=== PATIENT | female | born 1985 | race Caucasian/White ===

== ENCOUNTER 2024-02-21 20:01 | Outpatient (REF) | payer OTHER, SELFPAY ==
[2024-02-27 07:10] LABS: Age Gdln ACOG Testing Note (.); HPV Aptima Negative (Negative); IGP, Aptima HPV, rfx 16/18,45 Note (.)
== END 2024-02-21 20:02 | disposition home or self-care (01) ==
LOC: LAB 20:01
PROVIDERS: Visit Provider Obstetrics & Gynecology
DX: Z01.419 Encounter for gynecological examination (general) (routine) without abnormal findings (principal)
CPT/HCPCS: 87624; 88175

== ENCOUNTER 2025-04-07 11:44 | Outpatient (OUT) | payer BC, SELFPAY ==
--- OUTSIDE RECORDS SUMMARY | 2025-04-07 11:45 | XMS_ITS | Patient Health Record ---
Author Organization [facility] [place] Address [address] [place] [address] Care Team Providers Care Appliance Adjuster Name Role Phone Wild Murguia Primary Care Provider Reason For Referral No Information Plan Of Treatment No Information Medications Administered Medication Instructions Date of Administration Dosage Notes Kenalog-40 mg
--- OUTSIDE RECORDS SUMMARY | 2025-04-07 11:45 | XMS_ITS | Encounter Summary ---
Author Organization [facility] Address [address] [place] [address] Care Team Providers Care Ship Engines Operating Engineer Name Role Phone Venkatesh Murguia MD Primary Care Provider [phone] Encounter Details DateTypeDepartmentCare Team (Latest Contact Info)Dicnhgyhxfj02/22/2025Orders Only [facility] [address] [id number] Ludwig Conner, [address] [place], [place] [id number] Encounter for screening mammogram for breast cancer Social History Tobacco UseTypesPacks/DayYears UsedDateSmoking Tobacco: NeverSmokeless Tobacco: NeverAlcohol UseStandard Drinks/WeekCommentsNever0 (1 standard drink = 0.6 oz pure alcohol)CommentsUnknownSex and Gender InformationValueDate Recorded Sex Assigned at WvhdtNskiop80/22/2023 8:37 AM EDTLegal XaeOwrwti21/15/2023 11:46 PM EDTGender GltqjuxcEkkrrr32/22/2023 8:37 AM EDTSexual OrientationStraight 10/24/2022 8:37 AM EDTdocumented as of this encounter Plan of Treatment NameTypePriorityAssociated DiagnosesOrder ScheduleBilateral screening mammogram ImagingRoutine Encounter for screening mammogram for breast cancer Expected: 03/26/2025 (Approximate), Expires: 05/26/2026documented as of this encounter Visit Diagnoses Diagnosis Encounter for screening mammogram for breast cancer documented in this encounter Care Teams Team MemberRelationshipSpecialtyStart DateEnd Date Venkatesh Murguia MD [address] [place] [address] PCP - GeneralFamily Medicine10/25/22documented as of this encounter
--- OUTSIDE RECORDS SUMMARY | 2025-04-07 11:45 | XMS_ITS | Encounter Summary ---
Author Organization [facility] Address [address] [place] [address] Care Team Providers Care Nurse Emergency Room Name Role Phone Venkatesh Murguia MD Primary Care Provider [phone] Encounter Details DateTypeDepartmentCare Team (Latest Contact Info)Plgawybslgj57/22/2025Telephone [facility] [address] [place] [place] [phone] Iesha Daigle PA [address] [place], [place] [id number] Social History Tobacco UseTypesPacks/DayYears UsedDateSmoking Tobacco: NeverSmokeless Tobacco: NeverAlcohol UseStandard Drinks/WeekCommentsNever0 (1 standard drink = 0.6 oz pure alcohol)CommentsUnknownSex and Gender InformationValueDate Recorded Sex Assigned at DlmeuKfvfnn88/22/2023 8:37 AM EDTLegal MmsResekp52/15/2023 11:46 PM EDTGender YpdbcjwrIwemfx20/22/2023 8:37 AM EDTSexual OrientationStraight 10/24/2022 8:37 AM EDTdocumented as of this encounter Plan of Treatment Not on file documented as of this encounter Visit Diagnoses Diagnosis General counseling and advice on contraceptive management- Primary Other general counseling and advice for contraceptive management documented in this encounter Care Teams Team MemberRelationshipSpecialtyStart DateEnd Date Venkatesh Murguia MD [address] [place] [phone] PCP - GeneralFamily Medicine10/25/22documented as of this encounter
--- OUTSIDE RECORDS SUMMARY | 2025-04-07 11:45 | XMS_ITS | Clinical Summary ---
Author Organization [facility] Address [address] [place] [address] Care Team Providers Care Visual Stylist Name Role Phone Venkatesh Murguia MD Primary Care Provider [phone] Allergies No known active allergies Medications MedicationSigDispense QuantityRefillsLast FilledStart DateEnd DateStatus Zbjyvx-Mthgpggei-Hkne-Fish Oil ( + COMPLETE MULTI PO) Take 1 tablet by mouth in the morning.Active metFORMIN XR (Glucophage-XR) 500 MG 24 hr tablet Indications:Encounter for weight managementTAKE 1 TABLET BY MOUTH IN THE EVENING WITH MEALS, DO NOT CRUSH, CHEW, OR SPLIT 30 tablet 4Active methylPREDNISolone (Medrol Dospak) 4 MG tablets Indications:Upper respiratory tract infection, unspecified typeDay 1: 6 tablets Day 2: 5 tablets Day 3: 4 tablets Day 4: 3 tablets Day 5: 2 tablets Day 6: 1 tablet 21 tablet 5Active etonogestrel-ethinyl estradiol (EluRyng) 0.12-0.015 MG/24HR vaginal ring Indications:Encounter for other contraceptive managementINSERT 1 RING VAGINALLY DIRECTED. REMOVE AFTER 3 WEEKS & WAIT 7 DAYS BEFORE INSERTING A NEW RING 1 each 5Active albuterol HFA (Ventolin HFA) 90 mcg/act inhaler Indications:Upper respiratory tract infection, unspecified type,Sinusitis, unspecified chronicity, unspecified locationInhale 2 puffs every 8 (eight) hours if needed for wheezing 18 g /6Active minoxidil (Loniten) 10 MG tablet Indications:Hormone imbalanceTake 1 tablet (10 mg) by mouth Daily 90 tablet 5Active venlafaxine XR (Effexor XR) 37.5 MG 24 hr capsule Indications:Mood disorderTake 1 capsule (37.5 mg) by mouth Daily Do not crush or chew. 90 capsule 5Active segesterone-ethinyl estradiol (Annovera) 0.15-0.013 MG/24HR vaginal ring Indications:Contraceptive TherapyInsert vaginally and leave in place for 21 consecutive days (3 weeks), then remove. Wait for 7 daysbefore re-inserting same ring. 1 each 03/26/2025tive Active Problems ProblemNoted DateDiagnosed DateHormone titppzowb80/24/2025 Overview (02/26/2025): with hair loss Well woman exam with routine gynecological exam02/21/2024Mood unzkdyq6302/21/2024 Missed lhanav873Diet controlled gestational diabetes mellitus (GDM) in second trimester ([facility])11/13/2022Vaginal yeast dbijgoubr18/11/2023Elevated glucose tolerance test11/13/2022Excessive growth affecting management of mother in third trimester, antepartum ([facility])11/13/2022Nausea and vomiting 11/13/2022regnancy with normal glucose tolerance test (GTT) ([facility])11/13/2022 screening encounter ([facility])0 weeks gestation of ([facility])11/13/2022 Encounters DateTypeDepartmentCare AmvwAfgtwsuulct01/22/2025Telephone [facility] [address] [place] [address] Iesha Daigle PA 03/26/2025Orders Only [facility] [address] [place] [address] Ludwig Conner DO Encounter for screening mammogram for breast czsgwt9602/26/2025Telephone [facility] [address] [place] [address] Nasrin Carter LPN 02/04/2025Telephone [facility] [address] [place] [address] Sandy Ho MA from Last 3 Months Social History Tobacco UseTypesPacks/DayYears UsedDateSmoking Tobacco: NeverSmokeless Tobacco: Never Tobacco Cessation:Counseling Given: Not Answered Alcohol UseStandard Drinks/WeekCommentsNever0 (1 standard drink = 0.6 oz pure alcohol)CommentsUnknownSex and Gender InformationValueDate RecordedSex Assigned at OhtdfDxsqtq86/22/2023 8:37 AM EDTLegal KsiGinwib62/15/2023 11:46 PM EDTGender MfyxtsiyXetccm38/22/2023 8:37 AM EDTSexual OrientationStraight 10/24/2022 8:37 AM EDT Last Filed Vital Signs Vital SignReadingTime TakenCommentsBlood Nlajpzfs765/78008/27/2024 3:53 PM EDT Pulse--Temperature--Respiratory Rate--Oxygen Saturation--Inhaled Oxygen Concentration--Uvvckm70.5 kg (204 lb)08/27/2024 3:53 PM AMQUrlycx426.3 cm (5' 9 )02/21/2024 10:26 AM EDTBody Mass Index30.1309 10:26 AM EDT Plan of Treatment Not on file Insurance Care Teams Team MemberRelationshipSpecialtyStart DateEnd Venkatesh Murguia MD [address] [place] [address] PCP - GeneralFamily Medicine10/25/22
--- NOTE | 2025-04-07 11:48 | MM_ITS ---
Patient Name: SEBASTIAN LOPEZ MR#: [id number] : 1985 Exam Date: 04/07/2025 Ordering Doctor: DR TUCKER SHORT . RADIOLOGY REPORT PROCEDURE: MM TOMOSYNTHESIS SCREENING BI COMPARISON: MG MAMM BERNIE DIAG W CAD, 03/10/2017. INDICATIONS: Screening Calculator Name NCI Breast Cancer Risk Assessment Tool 5 Year Breast Cancer Risk 0.60% Lifetime Breast Cancer Risk 11.10% Personal Breast Cancer No Personal Ovarian Cancer No Treatments None Family Cancers Aunt-maternal with lung cancer at age 54; Grandfather-paternal with prostate cancer at age ~75; Grandmother-paternal with multiple myeloma cancer at age ~73. LOCATION: [facility] BREAST COMPOSITION: The breasts are heterogeneously dense, which may obscure small masses. FINDINGS: DIAGNOSTIC CATEGORY 1--NEGATIVE. RIGHT BREAST: No significant suspicious finding. LEFT BREAST: No significant suspicious finding. RECOMMENDATIONS: ROUTINE MAMMOGRAM AND CLINICAL EVALUATION IN 12 MONTHS. Dictated by: Roberth Mcfarland MD on 04/07/2025 at 14:54 Approved by: Roberth Mcfarlnad MD on 04/07/2025 at 14:56
--- OUTSIDE RECORDS SUMMARY | 2025-04-07 12:06 | XMS_ITS | CCD ---
Author Organization [facility] CliniSymt Care Team Providers Care Fats And Oils Loader Name Role Phone PHYSICIAN, DEFAULT Unavailable Unavailable PHYSICIAN, DEFAULT Unavailable Unavailable KARASIK ., DR TAMAYO Admitting Unavailabl e KARASIK ., DR TAMAYO Attending Unavailabl e KARASIK ., DR TAMAYO Consulting Unavailabl e HOY ., DR REID Primary Care Unavailable UBALDO ., DR CEBALLOS Consulting Unavailable ZIEBER, DR ZULMA Traore Consulting Unavailable UBALDO ., DR CEBALLOS Admitting Unavailable UBALDO ., DR CEBALLOS Consulting Unavailable HOY ., DR REID Primary Care Unavailable UBALDO ., DR CEBALLOS Attending Unavailable UBALDO ., DR CEBALLOS Procedure Practitioner Unavail able UBALDO ., DR CEBALLOS Consulting Unavailable HOY ., DR REID Primary Care Unavailable UBALDO ., DR CEBALLOS Attending Unavailable UBALDO ., DR CEBALLOS Admitting Unavailable KARASIK ., DR TAMAYO Admitting Unavailabl e KARASIK ., DR TAMAYO Attending Unavailabl e HOY ., DR REID Primary Care Unavailable KARASIK ., DR TAMAYO Consulting Unavailabl e WEST, DR STEVEN Waller Consulting Unavailable UBALDO ., DR CEBALLOS Consulting Unavailable UBALDO ., DR CEBALLOS Attending Unavailable UBALDO ., DR CEBALLOS Consulting Unavailable HOY ., DR REID Primary Care Unavailable UBALDO ., DR CEBALLOS Admitting Unavailable ZIEBER, DR ZULMA Traore Consulting Unavailable UBALDO ., DR CEBALLOS Admitting Unavailable UBALDO ., DR CEBALLOS Attending Unavailable UBALDO ., DR CEBALLOS Consulting Unavailable HOY ., DR REID Primary Care Unavailable ZIEBER, DR ZULMA Traore Consulting Unavailable UBALDO ., DR CEBALLOS Attending Unavailable UBALDO ., DR CEBALLOS Consulting Unavailable HOY ., DR REID Primary Care Unavailable UBALDO ., DR CEBALLOS Admitting Unavailable UBALDO ., DR CEBALLOS Admitting Unavailable WEST, DR STEVEN Waller Consulting Unavailable HOY ., DR REID Primary Care Unavailable UBALDO ., DR CEBALLOS Attending Unavailable UBALDO ., DR CEBALLOS Consulting Unavailable UBALDO ., DR CEBALLOS Consulting Unavailable YANIRA, PAUL Admitting Unavailable YANIRA, PAUL Attending Unavailable HOY ., DR REID Primary Care Unavailable ZIEBER, DR ZULMA Traore Consulting Unavailable PAUL DOYLE Consulting Unavailable UBALDO ., DR CEBALLOS Consulting Unavailable HOY ., DR REID Primary Care Unavailable UBALDO ., DR CEBALLOS Admitting Unavailable UBALDO ., DR CEBALLOS Attending Unavailable ZIEBER, DR ZULMA Traore Consulting Unavailable KARASIK ., DR TAMAYO Admitting Unavailabl e KARASIK ., DR TAMAYO Attending Unavailabl e KARASIK ., DR TAMAYO Consulting Unavailabl e HOY ., DR REID Primary Care Unavailable UBALDO ., DR CEBALLOS Consulting Unavailable ZIEBER, DR ZULMA Traore Consulting Unavailable UBALDO ., DR CEBALLOS Consulting Unavailable HOY ., DR REID Primary Care Unavailable UBALDO ., DR CEBALLOS Admitting Unavailable UBALDO ., DR CEBALLOS Attending Unavailable HOY ., DR REID Primary Care Unavailable UBALDO ., DR CEBALLOS Consulting Unavailable UBALDO ., DR CEBALLOS Admitting Unavailable UBALDO ., DR CEBALLOS Attending Unavailable UBALDO ., DR CEBALLOS Attending Unavailable HOY ., DR REID Primary Care Unavailable UBALDO ., DR CEBALLOS Consulting Unavailable UBALDO ., DR CEBALLOS Admitting Unavailable ZIEBER, DR ZULMA Traore Consulting Unavailable HOY ., DR REID Primary Care Unavailable UBALDO ., DR CEBALLOS Consulting Unavailable UBALDO ., DR CEBALLOS Admitting Unavailable UBALDO ., DR CEBALLOS Attending Unavailable ZIEBER, DR ZULMA Traore Consulting Unavailable UBALDO ., DR CEBALLOS Attending Unavailable HOY ., DR REID Primary Care Unavailable UBALDO ., DR CEBALLOS Consulting Unavailable UBALDO ., DR CEBALLOS Admitting Unavailable ZIEBER, DR ZULMA Traore Consulting Unavailable UBALDO ., DR CEBALLOS Admitting Unavailable WEST, DR STEVEN Waller Consulting Unavailable REQUEST, DR HERNANDEZ LISTED Primary Care Unavaila ble UBALDO ., DR CEBALLOS Attending Unavailable UBALDO ., DR CEBALLOS Consulting Unavailable HOY ., DR REID Primary Care Unavailable UBALDO ., DR CEBALLOS Admitting Unavailable UBALDO ., DR CEBALLOS Consulting Unavailable UBALDO ., DR CEBALLOS Attending Unavailable KARASIK ., DR TAMAYO Admitting Unavailabl e KARASIK ., DR TAMAYO Attending Unavailabl e KARASIK ., DR TAMAYO Consulting Unavailabl e VANCEY ., DR REID Primary Care Unavailable UBALDO ., DR CEBALLOS Attending Unavailable VANCEY ., DR REID Primary Care Unavailable UBALDO ., DR CEBALLOS Consulting Unavailable UBALDO ., DR CEBALLOS Admitting Unavailable ZIEBER, DR ZULMA Traore Consulting Unavailable Franklin Murguia MD Primary Care Provider [phone] TUCKER CONNER Attending Unavailable TUCKER CONNER Attending Unavailable TUCKER CONNER Attending Unavailable Franklin Murguia MD Primary Care Provider [phone] Allergies Allergy ClassificationReported Allergen(s)Allergy TypeDate of OnsetReaction(s) Facility (1 source)diphenhydrAMINEDrug [id number] [facility] Repository Medications Current Medications MedicationDrug Class(es)DatesSig (Normalized)Sig (Original)[id number] 200 actuat albuterol 0.09 mg/actuat metered dose inhaler (1 source)beta2-Adrenergic AgonistStart: 11-06-2024 End: 04-19-1081aazz 2 puff(s) by inhalation every eight hours for wheezing albuterol HFA (Ventolin HFA) 90 mcg/act inhaler Indications: Upper respiratory tract infection, unspecified type , Sinusitis, unspecified chronicity, unspecified location Inhale 2 puffs every 8 (eight) hours if needed for wheezing 18 g 2 11/06/2024 11/06/2025 Activeamoxicillin 500 mg oral tablet (2 sources)Penicillin-class AntibacterialStart: 08-20-2024 End: 92-62-1595cjsp 1 tablet by mouth in the morningamoxicillin (Amoxil) 500 MG tablet Indications: Tooth infection Take 1 tablet (500 mg) by mouth in the morning and 1 tablet (500 mg) before bedtime. Do all this for 14 days. 28 tablet 08/20/2024 09/03/2024 Pheqoi12 hr buPROPion hydrochloride 150 mg extended release oral tablet (5 sources)AminoketoneStart: 02-21-2024 End: 67-42-3014ttrm 1 tablet by mouth once dailybuPROPion XL (Wellbutrin XL) 150 MG 24 hr tablet Indications: Mood changes Take 1 tablet (150 mg) by mouth Daily Do not crush, chew, or split. 30 tablet 11 02/21/2024 02/20/2025 Activedesonide 0.5 mg/ml topical cream (4 sources)CorticosteroidStart: 02-14-2024 End: 17-98-2873fnguzkbt (DesOwen) 0.05 % cream Indications: Rash Apply topically 2 (two) times a day 15 g 02/14/2024 03/15/2024 Llfhik05 day ethinyl estradiol 0.454714 mg/hr / etonogestrel 0.005 mg/hr vaginal system (6 sources)Progestin, EstrogenStart: 16-34-2369kujkzovlviqi-ethinyl estradiol (EluRyng) 0.12-0.015 MG/24HR vaginal ring Indications: Encounter forother contraceptive management INSERT 1 RING VAGINALLY DIRECTED. REMOVE AFTER 3 WEEKS & WAIT7 DAYS BEFORE INSERTING A NEW RING 1 each 11 10/24/2024 ActiveStart: 89-10-9987jtllnusnznvw-ethinyl estradiol (Nuvaring) 0.12-0.015 MG/24HR vaginal ring Indications: Encounter for other contraceptive management Insert 1 Ring into the vagina every 28 (twenty-eight) days Insert vaginal ring for 3 weeks, then remove for 1 week. 3 each 3 11/14/2023 Srkezp532 day ethinyl estradiol 0.352680 mg/hr / segesterone acetate 0.29346 mg/hr vaginal system (1 source)EstrogenStart: 24-88-4919ofjmvcrzjup-ethinyl estradiol (Annovera) 0.15-0.013 MG/24HR vaginal ring Indications: ContraceptiveTherapy Insert vaginally and leave in place for 21 consecutive days (3 weeks), then remove. Wait for 7 days before re-inserting same ring. 1 each 03/26/2025 ActiveStart: 72-29-2656xnpuwhwsdhr-ethinyl estradiol (Annovera) 0.15-0.013 MG/24HR vaginal ring Indications: ContraceptiveTherapy Insert vaginally and leave in place for 21 consecutive days (3 weeks), then remove. Wait for 7 days before re-inserting same ring. 1 each 03/26/2025 Czacut71 hr metFORMIN hydrochloride 500 mg extended release oral tablet (7 sources)BiguanideStart: 04-44-9867vgrs 1 tablet by mouth every twenty-four hours at mealtimemetFORMIN XR (Glucophage-XR) 500 MG 24 hr tablet Indications: Encounter for weight management TAKE 1 TABLET BY MOUTH IN THE EVENING WITH MEALS, DO NOT CRUSH, CHEW, OR SPLIT 30 tablet 11 03/05/2024 ActiveStart: 26-45-6027ypyz 1 tablet by mouth every twenty-four hours at mealtimemetFORMIN XR (Glucophage-XR) 500 MG 24 hr tablet Indications: Encounter for weight management TAKE 1 TABLET BY MOUTH IN THE EVENING WITH MEALS, DO NOT CRUSH, CHEW, OR SPLIT 30 tablet 11 02/23/2023 ActivemethylPREDNISolone (1 source)CorticosteroidStart: 47-09-1665bxntfdHYYAKTAbfdys (Medrol Dospak) 4 MG tablets Indications: Upper respiratory tract infection, unspecified type Day 1: 6 tablets Day 2: 5 tablets Day 3: 4 tablets Day 4: 3 tablets Day 5: 2 tablets Da y 6: 1 tablet 21 tablet 08/30/2024 Activeminoxidil 10 mg oral tablet (1 source)Arteriolar VasodilatorStart: 02-26-2025 End: 74-01-4245byys 1 tablet by mouth once dailyminoxidil (Loniten) 10 MG tablet Indications: Hormone imbalance Take 1 tablet (10 mg) by mouth Daily 90 tablet 3 02/26/2025 05/27/2025 Activeondansetron 4 mg oral tablet (3 sources)Serotonin-3 Receptor AntagonistStart: 11-15-2023 End: 79-40-6559zkfl 1 tablet by mouth every six hours as needed for nausea and vomiting and nausea and nauseaondansetron (Zofran) 4 MG tablet Indications: Nausea Take 1 tablet (4 mg) by mouth every 6 (six) hours if needed for nausea or vomiting for up to 30 doses Take 1 tablet by mouth every 6 hours as needed for nausea. 30 tablet 3 11/15/2023 02/21/2024 Discontinued (Other) Sjicnv-Kzbcpugav-Eyqk-Fish Oil ( + COMPLETE MULTI PO) (7 sources)take 1 tablet by mouth in the yeimyemOflepk-Sngkluiro-Llqk-Fish Oil ( + COMPLETE MULTI PO) Take 1 tablet by mouth in the morning. Ekkdua99 hr venlafaxine 37.5 mg extended release oral capsule (1 source)Serotonin and Norepinephrine Reuptake InhibitorStart: 02-26-2025 End: 98-97-8784lqqx 1 capsule by mouth once dailyvenlafaxine XR (Effexor XR) 37.5 MG 24 hr capsule Indications: Mood disorder Take 1 capsule (37.5 mg) by mouth Daily Do not crush or chew. 90 capsule 3 02/26/2025 05/27/2025 Active Completed/Discontinued Medications MedicationDrug Class(es)DatesSig (Normalized)Sig (Original)phentermine hydrochloride 37.5 mg oral tablet (10 sources)Sympathomimetic Amine AnorecticStart: 12-20-2023 End: 49-35-9771rxgg 1 tablet by mouth before mealtimephentermine (Adipex-P) 37.5 MG tablet Indications: Encounter for weight management Take 1 tablet (37.5 mg) by mouth in the morning. Take before meals. 90 tablet 08/27/2024 08/27/2024 Discontinued Problems Active Problems Problem ClassificationProblemDateDocumented DateEpisodic/ChronicAllergic reactions (1 source)Allergy status to other drugs, medicaments and biological substances status; Translations: [ALLERGYSTATUS OTH RX MED AND BIO SUBST]Onset: 11-02-2022 EpisodicMenstrual disorders (10 sources)Irregular menstruation, unspecified; Translations: [Missed period] Onset: 88-60-0736ZqdfqjdDI-related trauma to perineum and vulva (1 source)Second degree perineal laceration during delivery; Translations: [SECOND DEG PERINEAL LAC DUR DELIV]Onset: 19-89-2589IuqovtyaZciha aftercare (1 source)residential (current) use of aspirin; Translations: [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 ASPIRIN]Onset: 81-71-7575DvbtlgcmBaugo aftercare (1 source)Other buttermaker helper (current) drug therapy; Translations: [OTH 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 CURRENT DRUG THERAPY]Onset: 10-15-3152YwdumkrgRkztg complications of ; puerperium affecting management of mother (3 sources)Streptococcus B carrier state complicating childbirth; Translations: [STREP B PERALTA STATE COMP CHILDBIRTH]Onset: 88-32-8174QvtdhedgUwfld complications of (1 source)Other placental disorders, third trimester; Translations: [OTH PLACENTAL DISORDER THIRD TRI]Onset: 59-71-4573SqowzwcuBepuc complications of (5 sources)Maternal care for excessive growth, third trimester, not applicable or unspecified; Translations: [MAT CARE EXCSS FTL GRTH 3RD TRI UNS] Onset: 88-45-7802KcewigayFgmcg complications of (5 sources)Supervision of elderly multigravida, third trimester; Translations: [SUP ELDER MULTIGRAVIDA THIRD TRI]Onset: 54-02-2541CezgrtmnKvbzq complications of (4 sources)Uterine size-date discrepancy, second trimester; Translations: [UTERINE SZ-DATE DISCREPANCY 2ND TRI]Onset: 75-33-7005GfplvjkwBcgxm complications of (4 sources)Uterine size-date discrepancy, third trimester; Translations: [UTERINE SZ-DATE DISCREPANCY 3RD TRI]Onset: 77-94-7675UqrnvgyoTiflp endocrine disorders (1 source)Disorder of endocrine system; Translations: [Endocrine disorder, unspecified]Onset: 094080-18-3313WmmzcrsmPiabt nutritional; endocrine; and metabolic disorders (2 sources)Weight increased; Translations: [Abnormal weight gain]08-27-2024 EpisodicOther screening for suspected conditions (not mental disorders or infectious disease) (10 sources)Patient encounter status; Translations: [Encounter for screening, unspecified]Onset: 420950-72-5818LpmlsizmBdjlkjpo codes; unclassified (1 source)38 weeks gestation of ; Translations: [38 WEEKS GESTATION OF ]Onset: 91-37-4854RlqzppepOhpbivlq codes; unclassified (1 source)Weeks of gestation of not specified; Translations: [WEEKS GESTATION NOT SPEC]Onset: 68-42-4061YmgdrbfeToxrgptm codes; unclassified (1 source)37 weeks gestation of ; Translations: [37 WEEKS GESTATION OF ]Onset: 96-57-4352VshewzbpBpsumxor codes; unclassified (1 source)36 weeks gestation of ; Translations: [36 WEEKS GESTATION OF ]Onset: 45-93-3988OtbvqvzzVtpekghj codes; unclassified (1 source)35 weeks gestation of ; Translations: [35 WEEKS GESTATION OF ]Onset: 42-70-9888SsanjisoIzwujnki codes; unclassified (1 source)34 weeks gestation of ; Translations: [34 WEEKS GESTATION OF ]Onset: 65-54-3326FdoqtmhaRjgbikbw codes; unclassified (1 source)33 weeks gestation of ; Translations: [33 WEEKS GESTATION OF ]Onset: 48-35-2519EysiylodLlrnxien codes; unclassified (1 source)32 weeks gestation of ; Translations: [32 WEEKS GESTATION OF ]Onset: 39-95-7963Mofzajrd Past or Other Problems Problem ClassificationProblemDateDocumented DateEpisodic/ChronicDiabetes mellitus without complication (12 sources)Other abnormal glucose; Translations: [Abnormal glucose tolerance test]Onset: 46-71-6949FelqoylnDatrhvmb or abnormal glucose tolerance complicating ; childbirth; or the puerperium (12 sources)Abnormal glucose complicating ; Translations: [Gestational diabetes mellitus in ,unspecified control]Onset: 91-26-2839Afczoimi Immunizations and screening for infectious disease (1 source)Encounter for screening for infections with a predominantly sexual mode of transmission; Translations: [ENC SCREEN INFECTIONS SEXL TRANSMS]Onset: 91-98-8010OsvjqemfNpqw disorders (8 sources)Disturbance in mood; Translations: [Emotional lability]Onset: 593997-39-1140LfihsiyuMcejxbt (7 sources)Candidiasis of vagina; Translations: [Vaginal yeast infection]Onset: 968386-22-4316EiffteecWikjvh and vomiting (7 sources)Nausea and vomiting; Translations: [Nausea with vomiting, unspecified]Onset: 086286-11-1021JlzxbsijXavod complications of (7 sources)Excessive growth affecting management of mother; Translations: [Maternal care for excessive growth, third trimester, not applicable or unspecified]Onset: 559854-61-1867QcutmxfhJpdgr female genital disorders (4 sources)Other specified noninflammatory disorders of vagina; Translations: [OTH SPEC NONINFLAMMATORY D/O VAGINA]Onset: 84-83-7620ZeyedebcPmfdl and delivery including normal (20 sources)Single live ; Translations: [Encounter for supervision of normal , unspecified, thirdtrimester]Onset: 64-37-2634SgxmfbldWckppwpt codes; unclassified (7 sources)Gestation period, 30 weeks; Translations: [30 weeks gestation of ]Onset: 377149-58-2107Vjgtddgh Results Test NameValueInterpretationReference RangeFacilityIGP,APTIMA HPV,AGE GDLNon 64-92-7126EBT GDLN ACOG TESTINGNote.NOMS HealthcareComment on above:TESTS RESULT FLAG UNITS REF RANGE LAB Clinician Provided Cytology Information Source.............Cervix;Endocervix No. of containers..01 ThinPrep Vial Age Algo ACOG Earnestine... 3065 FLAG LEGEND: L-Low Normal,H-High Normal,LL-Alert Low,HH-Alert High <-Panic Low,>-Panic High,A-Abnormal,AA-Critical Abnormal Performed at: 01 =[address] [address] Thu Viera MD, HPV APTIMANegativeNegativeNOMS HealthcareComment on above:This nucleic acid amplification test detects fourteen high- risk HPV types (16,18,31,33,35,39,45,51,52,56,58,59,66,68) without differentiation. Performed at: =G - [facility] [id number] Slip[employer] Cutter: Thu Viera MD, Phone: [phone] Performed at: - [facility], [place] [id number] Slip[employer] Cutter: Thu Viera MD, Phone: [phone] IGP, APTIMA HPV, RFX 16/18,45Note.NOMS HealthcareComment on above:TESTS RESULT FLAG UNITS REF RANGE LAB DIAGNOSIS: 02 NEGATIVE FOR INTRAEPITHELIAL LESION OR MALIGNANCY. Specimen adequacy: 02 Satisfactory for evaluation. Endocervical and/or squamous metaplastic cells (endocervical component) are present. Performed by: Ny Vanegas, Legal Editor (ASCP) . 02 Note: Note 02 The Pap smear is a screening test designed to aid in the detection of premalignant and malignant conditions of the uterine cervix. It is not a diagnostic procedure and should not be used as the sole means of detecting cervical cancer. Both false-positive and false-negative reports do occur. Test Methodology: Note 02 This liquid based ThinPrep(R) pap test was screened with the use of an image guided system. HPV Genotype Reflex Note 02 Criteria not met, HPV Genotype not performed. FLAG LEGEND: L-Low Normal,H-High Normal,LL-Alert Low,HH-Alert High <-Panic Low,>-Panic High,A-Abnormal,AA-Critical Abnormal Performed at: 02 [facility] [address] [place] [address] Thu Viera MD, BRUSH-SPATULA CERVIX ENDOCERVIX CLINISYNCNOMissouri [facility] AUTO DIFFon 83-02-7234VSME #0.0 103/ulNormal0.0-0.1 [facility] HospitalComment on above:Performed By: #### DRUGRPD #### [facility] [address] [address] [address] Jsameet RojoBasophils/100 WBC (Bld)0.3 %Normal0.2-2.0[facility] Comment on above:Performed By: #### DRUGRPD #### [facility] [address] [address] [address] Jasmeet Taylor #0.3 103/ulNormal0.0-0.7The [facility] HospitalComment on above: Performed By: #### DRUGRPD #### [facility] [address] [address] [address] Jasmeet Mahoneyosinophils/100 WBC (Bld)2.3 %Normal0.9-7.0[facility] Comment on above:Performed By: #### DRUGRPD #### [facility] [address] [address] [address] Jasmeet Mahoneyrythrocyte distribution width (RBC) [Ratio]12.7 %Gbvybh06.0-15.0 [facility] HospitalComment on above:Performed By: #### DRUGRPD #### [facility] [address] [address] [address] Jasmeet RojoHematocrit (Bld) [Volume fraction]31.8 %Critically low36.0-48.0 [facility] HospitalComment on above:Performed By: #### DRUGRPD #### [facility] [address] [address] [address] Jasmeet RojoHemoglobin (Bld) [Mass/Vol]11.3 g/dLCritically low12.0-16.0[facility] HospitalComment on above:Performed By: #### DRUGRPD #### [facility] [address] [address] [address] Jasmeet Dahl #0.04 10e3/ulCritically high0.00-0.03The [facility] Comment on above:Performed By: #### DRUGRPD #### [facility] [address] [place] [address] Dr. Jasmeet Dahl %0.3 %Normal0.0-0.5The [facility] HospitalComment on above: Performed By: #### DRUGRPD #### [facility] [address] [place] [address] Dr. Jasmeet Fox #2.0 103/ulNormal1.2-3.8The [facility] HospitalComment on above:Performed By: #### DRUGRPD #### [facility] [address] [place] [address] Dr. Jasmeet Rosenthalhocytes/100 WBC (Bld)17.3 %Critically low20.5-60.0[facility] HospitalComment on above:Performed By: #### DRUGRPD #### [facility] [address] [place] [address] Dr. Jasmeet MonterrosoUAL DIFF REQNONormalThe [facility] HospitalComment on above: Performed By: #### DRUGRPD #### [facility] [address] [place] [address] Dr. Jasmeet Davis (RBC) [Entitic mass]31.1 oqUotpww89.7-34.0The [facility] HospitalComment on above:Performed By: #### DRUGRPD #### [facility] [address] [place] [address] Dr. Jasmeet Ballard (RBC) [Mass/Vol]35.5 g/dLCritically high29.9-35.2The [facility] HospitalComment on above:Performed By: #### DRUGRPD #### [facility] [address] [place] [address] Dr. Jasmeet Benitez (RBC) [Entitic vol]87.6 aMFapoia52.0-99.0[facility] HospitalComment on above:Performed By: #### DRUGRPD #### [facility] [address] [place] [address] Dr. Jasmeet Crain #0.9 103/ulCritically high0.3-0.8The [facility] Comment on above:Performed By: #### DRUGRPD #### [facility] [address] [place] [address] Dr. Jasmeet Santamariaocytes/100 WBC (Bld)7.4 %Normal1.7-12.0[facility] Comment on above:Performed By: #### DRUGRPD #### [facility] [address] [place] [address] Dr. Jasmeet Paredes #8.4 103/ulCritically high1.4-6.5The [facility] Comment on above:Performed By: #### DRUGRPD #### [facility] [address] [place] [address] Dr. Jasmeet Davisutrophils/100 WBC (Bld)72.4 %Vjujvv74.0-75.0[facility] HospitalComment on above:Performed By: #### DRUGRPD #### [facility] [address] [place] [address] Dr. Jasmeet Guzman mean volume (Bld) [Entitic vol]9.1 fLCritically low 9.5-13.5The [facility] HospitalComment on above:Performed By: #### DRUGRPD #### [facility] [address] [place] [address] Dr. Jasmeet PhanT220 103/ncSowten829-266Idi [facility] HospitalComment on above: Performed By: #### DRUGRPD #### [facility] [address] [place] [address] Dr. Jasmeet RojoRBC3.63 106/ulCritically low4.20-5.40The [facility] HospitalComment on above:Performed By: #### DRUGRPD #### [facility] [address] [address] [address] Jasmeet RojoWBC11.5 103/ulCritically high4.0-11.0[facility] HospitalComment on above:Performed By: #### DRUGRPD #### [facility] [address] [place] [address] Dr. Jasmeet Jaramillo AUTO DIFFon 23-01-4364BZBX #0.0 103/ulNormal0.0-0.1The [facility] HospitalComment on above:Performed By: #### DRUGRPD #### [facility] [address] [address] [address] Jasmeet RojoBasophils/100 WBC (Bld)0.4 %Normal0.2-2.0[facility] Comment on above:Performed By: #### DRUGRPD #### [facility] [address] [address] [address] Jasmeet Taylor #0.1 103/ulNormal0.0-0.7The [facility] HospitalComvon [facility] on above: Performed By: #### DRUGRPD #### [facility] [address] [place] [address] Dr. Jasmeet Mahoneyosinophils/100 WBC (Bld)1.7 %Normal0.9-7.0The [facility] Comment on above:Performed By: #### DRUGRPD #### [facility] [address] [address] [address] Jasmeet Mahoneyrythrocyte distribution width (RBC) [Ratio]12.8 %Lrobgx72.0-15.0 [facility] HospitalComment on above:Performed By: #### DRUGRPD #### [facility] [address] [place] [address] Dr. Jasmeet RojoHematocrit (Bld) [Volume fraction]34.0 %Critically low36.0-48.0 The [facility] HospitalComment on above:Performed By: #### DRUGRPD #### [facility] [address] [address] [address] Jasmeet RojoHemoglobin (Bld) [Mass/Vol]12.0 g/cXEwirgi75.0-16.0The [facility] HospitalComment on above:Performed By: #### DRUGRPD #### [facility] [address] [place] [address] Dr. Jasmeet Dahl #0.04 10e3/ulCritically high0.00-0.03The [facility] Comment on above:Performed By: #### DRUGRPD #### [facility] [address] [place] [address] Dr. Jasmeet Dahl %0.5 %Normal0.0-0.5The [facility] HospitalComment on above: Performed By: #### DRUGRPD #### [facility] [address] [place] [address] Dr. Jasmeet Fox #2.0 103/ulNormal1.2-3.8The [facility] HospitalComment on above:Performed By: #### DRUGRPD #### [facility] [address] [place] [address] Dr. Jasmeet Rosenthalhocytes/100 WBC (Bld)24.0 %Rhsnbd04.5-60.0The [facility] HospitalComment on above:Performed By: #### DRUGRPD #### [facility] [address] [place] [address] Dr. Jasmeet MonterrosoUAL DIFF REQNONormalThe [facility] HospitalComment on above: Performed By: #### DRUGRPD #### [facility] [address] [place] [address] Dr. Jasmeet Davis (RBC) [Entitic mass]31.1 mvOjpaym88.7-34.0The [facility] HospitalComment on above:Performed By: #### DRUGRPD #### [facility] [address] [place] [address] Dr. Jasmeet Ballard (RBC) [Mass/Vol]35.3 g/dLCritically high29.9-35.2The [facility] HospitalComment on above:Performed By: #### DRUGRPD #### [facility] [address] [place] [address] Dr. Jasmeet Benitez (RBC) [Entitic vol]88.1 pFMhgfsp87.0-99.0The [facility] HospitalComment on above:Performed By: #### DRUGRPD #### [facility] [address] [place] [address] Dr. Jasmeet Crain #0.7 103/ulNormal0.3-0.8The [facility] HospitalComment on above:Performed By: #### DRUGRPD #### [facility] [address] [place] [address] Dr. Jasmeet Santamariaocytes/100 WBC (Bld)7.8 %Normal1.7-12.0[facility] Comment on above:Performed By: #### DRUGRPD #### [facility] [address] [place] [address] Dr. Jasmeet Paredes #5.5 103/ulNormal1.4-6.5The [facility] HospitalComment on above:Performed By: #### DRUGRPD #### [facility] [address] [place] [address] Dr. Jasmeet Davisutrophils/100 WBC (Bld)65.6 %Hecamo19.0-75.0The [facility] HospitalComment on above:Performed By: #### DRUGRPD #### [facility] [address] [place] [address] Dr. Jasmeet Rainlet mean volume (Bld) [Entitic vol]8.8 fLCritically low 9.5-13.5The [facility] HospitalComment on above:Performed By: #### DRUGRPD #### [facility] [address] [place] [address] Dr. Jasmeet RojoPLT263 103/olCyptog997-679Mag [facility] HospitalComment on above: Performed By: #### DRUGRPD #### [facility] [address] [place] [address] Dr. Jasmeet RojoRBC3.86 106/ulCritically low4.20-5.40The [facility] on above:Performed By: #### DRUGRPD #### [facility] [address] [place] [address] Dr. Jasmeet RojoWBC8.4 103/ulNormal4.0-11.0[facility] on above: Performed By: #### DRUGRPD #### [facility] [address] [place] [address] Dr. Jasmeet RojoDRUG SCREEN RAPID (URINE)on [id number]A The [facility] HospitalComment on above:Performed By: #### DRUGRPD #### [facility] [address] [place] [address] Dr. Jasmeet RodriguezNegativeNormalNEGATIVESamaritan HospitalComvon [facility] on above: Performed By: #### DRUGRPD #### [facility] [address] [place] [address] Dr. Jasmeet AnayaPNegativeNormalNEGATIVEMercy Health [facility] Hospital on above: Performed By: #### DRUGRPD #### [facility] [address] [place] [address] Dr. Jasmeet RojoBZONegativeNormalNEGCleveland Clinic Children's Hospital for RehabilitationComvon [facility] on above: Performed By: #### DRUGRPD #### [facility] [address] [place] [address] Dr. Jasmeet MayorgaCNegativeNormalNEGCleveland Clinic Children's Hospital for RehabilitationComvon [facility] on above: Performed By: #### DRUGRPD #### [facility] [address] [place] [address] Dr. Jasmeet PaganOhioHealth Van Wert HospitalComvon [facility] on above: Result Comment: AMP (Amphetamine): 500ng/mL, BAR (Barbituates): 200 ng/mL, BZO (Benzodiazepines): 150 ng/mL, BUP (Buprenorphine): 10 ng/mL, VIVI (Cocaine): 150 ng/mL, mAMP (Methamphetamine): 500 ng/mL, MTD (Methadone): 200 ng/mL, OPI (Opiates): 100 ng/mL, OXY (Oxycodone): 100 ng/mL, PCP (Phencyclidine): 25 ng/mL, PPX (Propoxyphene): 300 ng/mL, THC (Cannabinoids): 50 ng/mL, TCA (Trycyclic Antidepressants): 300 ng/mLPerformed By: #### DRUGRPD #### [facility] [address] [place] [address] Dr. Jasmeet RojoDRUG CUT HEADERDRUG CLASS TEST SYSTEM CUT-OFF CONCENTRATIONS ARE FOLLOWS:NormalRiverview Health Institutement on above:Performed By: #### DRUGRPD #### [facility] [address] [place] [address] Dr. Jasmeet RojomAMPNegativeNormalNEGATIVESamaritan HospitalComment on above: Performed By: #### DRUGRPD #### [facility] [address] [place] [address] Dr. Jasmeet RojoMTDNegativeNormalNEGATIVESamaritan HospitalComment on above: Performed By: #### DRUGRPD #### [facility] [address] [place] [address] Dr. Jasmeet ChoudhuryINegativeNormalNEGATIVESamaritan HospitalComment on above: Performed By: #### DRUGRPD #### [facility] [address] [place] [address] Dr. Jasmeet RojoOXYNegativeNormalNEGATIVESamaritan HospitalComment on above: Performed By: #### DRUGRPD #### [facility] [address] [place] [address] Dr. Jasmeet RojoPCPNegativeNormalNEGATIVESamaritan HospitalComment on above: Performed By: #### DRUGRPD #### [facility] [address] [place] [address] Dr. Jasmeet RojoPPXNegativeNormalNEGATIVESamaritan HospitalComment on above: Performed By: #### DRUGRPD #### [facility] [address] [address] [address] Jasmeet RojoTCANegativeNormalNEGCleveland Clinic Children's Hospital for RehabilitationComment on above: Performed By: #### DRUGRPD #### [facility] [address] [address] [address] Jasmeet HallCNegativeNormalNEGATIVESamaritan HospitalComment on above: Performed By: #### DRUGRPD #### [facility] [address] [address] [address] Jasmeet RojoTYPE AND SCREENon [id number] AND SCREENNegativeHarrison Community HospitalComment on above:Performed By: #### TNS #### [facility] [address] [address] [address] Jasmeet Maki PREG BIOPHY W NON STRESSon [id number] PREG BIOPHY W NON STRESSEXAMINATION: US PREG BIOPHY W NON STRESS HISTORY: Blood glucose abnormal COMPARISON: No relevant comparison available. TECHNIQUE: Ultrasound biophysical profile was performed in the radiology department. FINDINGS: BREATHING MOVEMENTS: 2 GROSS BODY MOVEMENTS: 2 TONE: 2 QUALITATIVE AMNIOTIC FLUID VOLUME: 2 PRESENTATION: CEPHALIC HEART RATE: 125.0 bpm H.B./min AMNIOTIC FLUID VOLUME: 13.1 cm cm Other: Nuchal cord CONCLUSION: Nuchal cord Total biophysical profile score: 8 Electronically authenticated by: STEVEN GEIGER Date: 2022-10-28 17:04[facility] HospitalUS PREG BIOPHY W NON STRESSon [id number] PREG BIOPHY W NON STRESSEXAMINATION: US PREG BIOPHY W NON STRESS HISTORY: Blood glucose abnormal COMPARISON: Ultrasound biophysical 10/14/2022 FINDINGS: BREATHING MOVEMENTS: 2.0 GROSS BODY MOVEMENTS: 2.0 TONE: 2.0 QUALITATIVE AMNIOTIC FLUID VOLUME: 2.0 PRESENTATION: CEPHALIC HEART RATE: 140.6 bpm bpm. AMNIOTIC FLUID VOLUME: 14.5 cm GESTATIONAL AGE: 37 weeks 2 days CONCLUSION: Total biophysical profile score 8.0. Electronically authenticated by: ZULMA DURAN Date: 2022-10-20 16:02[facility] HospitalGROUP B STREP CULTUREon 10-16-2022S. agalactiae Ag Ql (Unsp spec)Isolate 1 Streptococcus agalactiae Moderate growth of ORGANISM 1 Streptococcus agalactiae ANTIBIOTIC M.I.C RX STATUS Benzylpenicillin <=0.06 S F Ampicillin <=0.25 S F Cefotaxime <=0.12 S F Ceftriaxone <=0.12 S F Levofloxacin 1 S F Inducible Clindamycin Resistance Neg NEG F Erythromycin >=8 R F Clindamycin >=1 R F Linezolid <=2 S F Vancomycin 0.5 S F Tetracycline >=16 R FNormalSamaritan HospitalComment on above:Performed By: #### HIV12 #### [facility] [address] [place] [address] Dr. Jasmeet Maki PREG BIOPHY W NON STRESSon [id number] PREG BIOPHY W NON STRESSEXAMINATION: US PREG BIOPHY W NON STRESS HISTORY: Blood glucose abnormal COMPARISON: No relevant comparison available. TECHNIQUE: Ultrasound biophysical profile was performed in the radiology department. non-reactive stress testing was performed by nursing staff in the birthing center. FINDINGS: BREATHING MOVEMENTS: 2.0 GROSS BODY MOVEMENTS: 2.0 TONE: 2.0 QUALITATIVE AMNIOTIC FLUID VOLUME: 2.0 PRESENTATION: CEPHALIC HEART RATE: 157.0 bpm H.B./min AMNIOTIC FLUID VOLUME: 9.5 cm cm GESTATIONAL AGE: 36 weeks 3 days CONCLUSION: Total biophysical profile score: 8.0 Electronically authenticated by: STEVEN GEIGER Date: 2022-10-14 15:12[facility] PREG GROWTHon [id number] PREG GROWTHEXAMINATION: US PREG GROWTH HISTORY: Gestational diabetes mellitus COMPARISON: Ultrasound growth 09/13/2022 FINDINGS: Heart Rate: 138.0 bpm Number: 1.0 Position: CEPHALIC Amniotic Fluid Volume: 13.0 cm Maximum Vertical Pocket: 4.0 cm BIOMETRY: BPD: 8.6 cm cm; 34 weeks 4 days HC: 33.3 cmcm; 38 weeks 0 days AC: 31.4 cm cm; 35 weeks 3 days FL: 7.3 cm cm; 37 weeks 3 days EFW: 2844.7 grams; 47% FL/AC: 23.2 FL/BPD: 85.3 HC/AC: 1.1 GESTATIONAL AGE: Age by EDC: 36 weeks 2 days EDINSON by EDC: 11/08/2022 Age by US: 36 weeks 3 days EDINSON by US: 11/07/2022 IMPRESSION: 1. Single live intrauterine with growth detailed above. Electronically authenticated by: ZULMA DURAN Date: 2022-10-13 15:40[facility] PREG BIOPHY W NON STRESSon [id number] PREG BIOPHY W NON STRESSEXAMINATION: US PREG BIOPHY W NON STRESS HISTORY: Blood glucose abnormal COMPARISON: No relevant comparison available. FINDINGS: BREATHING MOVEMENTS: 2.0 GROSS BODY MOVEMENTS: 2.0 TONE: 2.0 QUALITATIVE AMNIOTIC FLUID VOLUME: 2.0 PRESENTATION: Cephalic HEART RATE: 154.3 bpm bpm. AMNIOTIC FLUID VOLUME: 10.6 cm GESTATIONAL AGE: 35 weeks 3 days CONCLUSION: 1. Total biophysical profile score 8.0. 2. Nuchal cord. Electronically authenticated by: ZULMA DURAN Date: 2022-10-07 15:43[facility] PREG BIOPHY W NON STRESSon [id number] PREG BIOPHY W NON STRESSEXAMINATION: US PREG BIOPHY W NON STRESS HISTORY: Blood glucose abnormal COMPARISON: Ultrasound biophysical 09/23/2022 FINDINGS: BREATHING MOVEMENTS: 2.0 GROSS BODY MOVEMENTS: 2.0 TONE: 2.0 QUALITATIVE AMNIOTIC FLUID VOLUME: 2.0 PRESENTATION: CEPHALIC HEART RATE: 135.7 bpm bpm. AMNIOTIC FLUID VOLUME: 9.3 cm GESTATIONAL AGE: 34 weeks 3 days CONCLUSION: Total biophysical profile score 8.0. Electronically authenticated by: ZULMA DURAN Date: 2022-09-30 10:53[facility] PREG BIOPHY W NON STRESSon [id number] PREG BIOPHY W NON STRESSEXAMINATION: US PREG BIOPHY W NON STRESS HISTORY: Blood glucose abnormal COMPARISON: Ultrasound biophysical 09/16/2022 FINDINGS: BREATHING MOVEMENTS: 2.0 GROSS BODY MOVEMENTS: 2.0 TONE: 2.0 QUALITATIVE AMNIOTIC FLUID VOLUME: 2.0 PRESENTATION: Cephalic HEART RATE: 137.8 bpm bpm. AMNIOTIC FLUID VOLUME: 12.5 cm GESTATIONAL AGE: 33 weeks 3 days CONCLUSION: Total biophysical profile score 8.0. Electronically authenticated by: ZULMA DURAN Date: 2022-09-23 10:54[facility] PREG BIOPHY W NON STRESSon [id number] PREG BIOPHY W NON STRESSEXAMINATION: US PREG BIOPHY W NON STRESS HISTORY: Blood glucose abnormal COMPARISON: Ultrasound biophysical 09/15/2022 FINDINGS: BREATHING MOVEMENTS: 2.0 GROSS BODY MOVEMENTS: 2.0 TONE: 2.0 QUALITATIVE AMNIOTIC FLUID VOLUME: 2.0 PRESENTATION: CEPHALIC HEART RATE: 134.3 bpm bpm. AMNIOTIC FLUID VOLUME: 10.8 cm GESTATIONAL AGE: 32 weeks 3 days CONCLUSION: Total biophysical profile score 8.0. Electronically authenticated by: ZULMA DURAN Date: 2022-09-18 23:22[facility] PREG BIOPHY W NON STRESSEXAMINATION: US PREG BIOPHY W NON STRESS HISTORY: Blood glucose abnormal COMPARISON: Ultrasound growth 09/13/2022 FINDINGS: BOWEL GAS PATTERN: No abnormal dilation or deviation. CALCIFICATIONS: None significant. OTHER: Negative. No abnormal gaseous collections. IMPRESSION: BREATHING MOVEMENTS: 0.0 GROSS BODY MOVEMENTS: 2.0 TONE: 2.0 QUALITATIVE AMNIOTIC FLUID VOLUME: 2.0 PRESENTATION: Breech HEART RATE: 144.4 bpm bpm. AMNIOTIC FLUID VOLUME: 13.2 cm GESTATIONAL AGE: 32 weeks 2 days CONCLUSION: Total biophysical profile score 6.0. Electronically authenticated by: ZULMA DURAN Date: 2022-09-18 23:06[facility] PREG GROWTHon [id number] PREG GROWTHEXAMINATION: US PREG GROWTH HISTORY: Gestational diabetes mellitus COMPARISON: Ultrasound growth 08/18/2022 FINDINGS: Heart Rate: 171.0 bpm Number: 1.0 Position: Cephalic Amniotic Fluid Volume: 11.4 cm Maximum Vertical Pocket: 4.7 cm BIOMETRY: BPD: 8.1 cm cm; 32 weeks 3 days HC: 31.1 cmcm; 34 weeks 5 days AC: 27.7 cm cm; 31 weeks 5 days FL: 6.5 cm cm; 33 weeks 3 days EFW: 2007.8 grams; 59% FL/AC: 23.4 FL/BPD: 80.3 HC/AC: 1.1 GESTATIONAL AGE: Age by EDC: 32 weeks 0 days EDINSON by EDC: 11/08/2022 Age by US: 33 weeks 1 day EDINSON by US: 10/11/2022 IMPRESSION: 1. Single live intrauterine with growth detailed above. Electronically authenticated by: ZULMA DURAN Date: 2022-09-13 16:00[facility] PREG GROWTHon [id number] PREG GROWTHEXAMINATION: US PREG GROWTH HISTORY: Gestational diabetes mellitus COMPARISON: Ultrasound anatomy 07/08/2022 FINDINGS: Heart Rate: 142.0 bpm Number: 1.0 Position: Breech Amniotic Fluid Volume: 14.9 cm Maximum Vertical Pocket: 4.1 cm BIOMETRY: BPD: 7.6 cm cm; 30 weeks 3 days; 93% HC: 27.6 cmcm; 30 weeks 1 days; 77% AC: 24.1 cm cm; 28 weeks 3 days; 45% FL: 5.5 cm cm; 29 weeks 0 days; 54% EFW: 1298.1 grams; 60% FL/AC: 22.7 FL/BPD: 72.4 HC/AC: 1.2 GESTATIONAL AGE: Age by EDC: 28 weeks 2 days EDINSON by EDC: 11/08/2022 Age by US: 29 weeks 4 days EDINSON by US: 10/30/2022 IMPRESSION: 1. Single live intrauterine with growth detailed above. Electronically authenticated by: ZULMA DURAN Date: 2022-08-18 15:14[facility] PREG ANATOMY SINGLEon [id number] PREG ANATOMY SINGLE EXAMINATION: US PREG ANATOMY SINGLE HISTORY: anatomy study COMPARISON: No relevant comparison available. TECHNIQUE: Transabdominal sonographic examination was performed for obstetrical and evaluation. FINDINGS: Number: 1 Heart Rate: 150.0 bpm H.B. /min Amniotic Fluid Volume: Subjectively normal Placental Location: Anterior with lower margin 7.4 cm from os. Cervix Length: 5.67 m, closed. ANATOMY: Normal Structures -cerebellum, choroid plexus, cisterna magna, lateral cerebral ventricles, orbits, midline falx, hard palate, four-chamber heart, RVOT, LVOT, stomach, kidneys, bladder, umbilical cord insertion into abdomen, three-vessel cord, cervical spine, thoracic spine, lumbar spine, sacral spine, right upper extremity, left upper extremity, right lower extremity, left lower extremity. SUBOPTIMALLY SEEN: None ABNORMALITIES: None BIOMETRY: BPD: 5.4 cm 22 weeks 4 days HC: 20.8 cm 22 weeks 6 days AC: 17.3 cm 22 weeks 2 days FL: 4.1 cm 23 weeks 2 days EFW:528.3 grams; 58% FL/AC: 23.6 FL/BPD: 75.3 HC/AC: 1.2 GESTATIONAL AGE: Age by EDC: 22 weeks 3 days EDINSON by EDC: 11/08/2022 Age by current US: 22 weeks 5 days EDINSON by current US: 11/06/2022 IMPRESSION: 1. Single live intrauterine with growth detailed above. Electronically authenticated by: ZULMA DURAN Date: 2022-07-08 15:26[facility] HospitalCHLAMYDIA/GONOCOCCUS ALICIA (SWAB/URINE/PAPon [id number] trachomatis, NAANegativeNormalNegativeSamaritan HospitalComment on above: Performed By: #### DRUGRPD #### [facility] [address] [place] [address] Dr. Jasmeet RojoNeisseria gonorrhoeae, NAANegativeNormalNegativeSamaritan HospitalComment on above:Performed By: #### DRUGRPD #### [facility] [address] [place] [address] Dr. Jasmeet RojoVAGINITIS/VAGINOSIS DNA PROBEon [id number] speciesPositive AbnormalNegativeSamaritan HospitalComment on above:Performed By: #### VAGINT #### [facility] [address] [place] [address] Dr. Jasmeet Hallerellramona vaginalisNegativeNormalNegativeSamaritan Hospital Comment on above:Performed By: #### VAGINT #### [facility] [address] [place] [address] Dr. Jasmeet RojoTrichomonas vaginalisNegativeNormalNegativeSamaritan Hospital Comment on above:Performed By: #### VAGINT #### [facility] [address] [place] [address] Dr. Jasmeet RojoGLUCOSE - [facility] [id number] [Mass/Vol]143 mg/dLCritically uhdf58-927Rln Park[facility] Hospitalment on above:Performed By: #### GLU1HR #### [facility] [address] [place] [address] Dr. Jasmeet Bradley B SURFACE ANTIGEN SCREENon [id number] ScreenNegative NormalNegativeThe Parkwood Hospitalment on above:Performed By: #### HBSANS #### [facility] [address] [place] [address] Dr. Jasmeet KleinPATITIS C VIRUS AB W/ REFLEX QUANTon [id number] AB<0.1Normal 0.0-0.9[facility] on above:Performed By: #### HCVPCRR #### [facility] [address] [place] [address] Dr. Jasmeet oRjoInterpretation:CommentNormalThe St[facility] on above:Result Comment: Negative Not infected with HCV, unless recent infection is suspected or other evidence exists to indicate HCV infection.Performed By: #### HCVPCRR #### [facility] [address] [place] [address] Dr. Jasmeet Higgins 1 AND 2 WITH REFLEXon [id number] Screen 4th Generation wRfxNon-ReactiveNormalNon ReactiveThe St[facility] on above:Result Comment: HIV Negative HIV-1/HIV-2 antibodies and HIV-1 p24 antigen were NOT detected. There is no laboratory evidence of HIV infection.Performed By: #### HIV12 #### [facility] [address] [place] [address] Dr. Jasmeet RojoRPLeón QUANTon [id number] Plasma Reagin, QuantNon-Reactive NormalNonRea<1:1[facility] on above:Result Comment: Please Note: This test does not meet current guidelines for screening and diagnosis of syphilis. This test is intended for following treatment response in patients being treated for syphilis infection. To screen for syphilis infection, a reflex cascade that includes both RPR and a treponema-specific assay should be utilized, such as Treponema pallidum (Syphilis) Screening [place] (893818) or Rapid Plasma Reagin (RPR) Test With Reflex to Quantitative RPR and Confirmatory Treponema pallidum Antibodies (607962).Performed By: #### RPRQ #### [facility] [address] [place] [address] Dr. Jasmeet Hernandez AB IGGon [id number] Antibodies, IgG4.15 index NormalImmune >0.99[facility]itan HospitalComment on above:Result Comment: Non- immune <0.90 Equivocal 0.90 - 0.99 Immune >0.99Performed By: #### HIV12 #### [facility] [address] [place] [address] Dr. Jasmeet Jaramillo AUTO DIFFon [id number] #0.0 103/ulNormal0.0-0.1The [facility] HospitalComment on above:Performed By: #### CBC #### [facility] [address] [place] [address] Dr. Jasmeet RojoBasophils/100 WBC (Bld)0.5 %Normal0.2-2.0[facility] Comment on above:Performed By: #### CBC #### [facility] [address] [place] [address] Dr. Jasmeet Taylor #0.1 103/ulNormal0.0-0.7The [facility] HospitalComment on above: Performed By: #### CBC #### [facility] [address] [place] [address] Dr. Jasmeet Mahoneyosinophils/100 WBC (Bld)1.0 %Normal0.9-7.0[facility] Comment on above:Performed By: #### CBC #### [facility] [address] [place] [address] Dr. Jasmeet Mahoneyrythrocyte distribution width (RBC) [Ratio]11.9 %Jgoabg00.0-15.0 The [facility] HospitalComment on above:Performed By: #### CBC #### [facility] [address] [place] [address] Dr. Jasmeet RojoHematocrit (Bld) [Volume fraction]38.7 %Xhyybc39.0-48.0The [facility] HospitalComment on above:Performed By: #### CBC #### [facility] [address] [place] [address] Dr. Jasmeet RojoHemoglobin (Bld) [Mass/Vol]13.7 g/uBIxypvp32.0-16.0The [facility] HospitalComment on above:Performed By: #### CBC #### [facility] [address] [place] [address] Dr. Jasmeet Dahl #0.02 10e3/ulNormal0.00-0.03The [facility] HospitalComment on above:Performed By: #### CBC #### [facility] [address] [place] [address] Dr. Jasmeet Dahl %0.2 %Normal0.0-0.5The [facility] HospitalComment on above: Performed By: #### CBC #### [facility] [address] [place] [address] Dr. Jasmeet Fox #2.4 103/ulNormal1.2-3.8The [facility] HospitalComment on above:Performed By: #### CBC #### [facility] [address] [place] [address] Dr. Jasmeet Rosenthalhocytes/100 WBC (Bld)28.3 %Sdhtgr68.5-60.0The [facility] HospitalComment on above:Performed By: #### CBC #### [facility] [address] [place] [address] Dr. Jasmeet MonterrosoUAL DIFF REQNONormalThe [facility] HospitalComment on above: Performed By: #### CBC #### [facility] [address] [place] [address] Dr. Jasmeet Davis (RBC) [Entitic mass]30.4 suMhfwbs58.7-34.0The [facility] HospitalComment on above:Performed By: #### CBC #### [facility] [address] [place] [address] Dr. Jasmeet Ballard (RBC) [Mass/Vol]35.4 g/dLCritically high29.9-35.2The [facility] HospitalComment on above:Performed By: #### CBC #### [facility] [address] [place] [address] Dr. Jasmeet Benitez (RBC) [Entitic vol]85.8 rRXklmdt04.0-99.0The [facility] HospitalComment on above:Performed By: #### CBC #### [facility] [address] [place] [address] Dr. Jasmeet Crain #0.6 103/ulNormal0.3-0.8The [facility] HospitalComment on above:Performed By: #### CBC #### [facility] [address] [place] [address] Dr. Jasmeet Santamariaocytes/100 WBC (Bld)7.0 %Normal1.7-12.0The [facility] Comment on above:Performed By: #### CBC #### [facility] [address] [place], [place] [address] Dr. Jasmeet Paredes #5.4 103/ulNormal1.4-6.5The [facility] HospitalComment on above:Performed By: #### CBC #### [facility] [address] [place] [address] Dr. Jasmeet Davisutrophils/100 WBC (Bld)63.0 %Aemxim53.0-75.0The [facility] HospitalComment on above:Performed By: #### CBC #### [facility] [address] [place] [address] Dr. Jasmeet Guzman mean volume (Bld) [Entitic vol]9.4 fLCritically low 9.5-13.5The [facility] HospitalComment on above:Performed By: #### CBC #### [facility] [address] [place] [address] Dr. Jasmeet PhanT304 103/qiPtwhvg363-371Zng [facility] HospitalComment on above: Performed By: #### CBC #### [facility] [address] [place] [address] Dr. Jasmeet RojoRBC4.51 106/ulNormal4.20-5.40The [facility] on above:Performed By: #### CBC #### [facility] [address] [place] [address] Dr. Jasmeet RojoWBC8.6 103/ulNormal4.0-11.0The [facility] on above: Performed By: #### CBC #### [facility] [address] [place] [address] Dr. Jasmeet RojoCULTURE URINEon 43-93-9539XMZJOTB URINECulture Observations: NO GROWTH.NormalThe [facility] on above:Performed By: #### URCX #### [facility] [address] [place] [address] Dr. Jasmeet RojoGLYCOHEMOGLOBIN A1Con 50-77-3792LVU RECOMMENDATIONSEE BELOWNormal The [facility] HospitalComvon [facility] on above:Result Comment: ADA RECOMMENDED LIMIT 4.0 - 6.0 ADA THERAPEUTIC TARGET < 7.0 ACTION SUGGESTED > 7.0Performed By: #### DRUGRPD #### [facility] [address] [place] [address] Dr. Jasmeet RojoGlucose [Mass/Vol]114 mg/dLNoToledo HospitalComvon [facility] on above:Performed By: #### DRUGRPD #### [facility] [address] [place] [address] Dr. Jasmeet RojoHbA1c (Bld) [Mass fraction]5.6 %Normal4.5-6.2The [facility] on above:Performed By: #### DRUGRPD #### [facility] [address] [place] [address] Dr. Jasmeet RojoTYPE AND SCREENon 79-03-3925RSHN AND SCREENNegativeHarrison Community HospitalComvon [facility] on above:Performed By: #### HIV12 #### [facility] [address] [place] [address] Dr. Jasmeet RojoUS PREG TVon 57-33-7666RH PREG TVEXAMINATION: US PREG TV HISTORY: Missed period COMPARISON: No relevant comparison available. FINDINGS: Transvaginal imaging Young intrauterine gestation Gestational sac: 3.2 cm, 8 weeks 2 days CRL: 2.3 cm, 9 weeks 0 days Yolk sac: 0.52 cm Heart rate: 170 Cervix: Closed, 5.2 cm The uterus is normal in appearance. Anteverted, anteflexed The right ovary is not visualized Left ovary is normal in appearance measuring 2.6 x 1.3 x 2.1 cm Clinical age: 8 weeks 3 days Clinical EDINSON: 11/08/2022 Ultrasound age: 9 weeks 0 days Ultrasound EDINSON: 11/04/2022 IMPRESSION: Viable young intrauterine gestation measuring 9 weeks 0 days Electronically authenticated by: STEVEN GEIGER Date: 2022-04-01 17:11[facility] Vital Signs Date TimeVital SignValuePerforming ZjkeqyazmFugpqnsv26-84-4326 15:53-0400Body mass index (BMI) [Ratio]30.13 kg/j6IuzcvDuriana Work Phone: [phone] Science CenterOzbphjjxbn87-43-8955 15:53-0400Body xohlva11.53 kgCorey [employer] Work Phone: [phone]'s in My HandbagMercy hospital springfieldZomqizanuw18-26-6165 15:53-0400Diastolic blood keehttqt86 mm[Hg][employer] Work Phone: [phone] CenterPepbkulmwy26-86-2308 15:53-0400Systolic blood phymfpeb334 mm[Hg][employer] Work Phone: [facility] CenterFnjzxstrps63-39-9472 10:26-0400Body .3 cmCorey [employer] Work Phone: [employer] Thmvnnmhuj46-87-4411 10:26-0400Body mass index (BMI) [Ratio]26.29 kg/v0DknqjDuriana Work Phone: [employer] Acajieehgm33-87-6047 10:26-0400Body nysfof03.74 kgCorey [employer] Work Phone: [facility] Healthcare Encounters Encounter DateEncounter TypeCare ProviderFacilityStart: 03-26-2025 End: 36-75-6817Rwczitxve encounterAmy Rye PA Work Phone: [facility] [place] [facility]YNStart: 08-27-2024 End: 11-24-6009wzlzeneuzcEWYKX FAZIONot AvailableStart: 08-27-2024 End: 39-35-3850Xcxcdm outpatient visit 15 minutesCorey Ubaldo DO Work Phone: [facility] OBComment on above:Weight gain; Encounter for weight managementStart: 02-21-2024 End: 56-88-4861Uwuucb flowsheetCorey Ubaldo DO Work Phone: noms [facility] OBStart: 02-21-2024 End: 00-18-7405Otlqit flowsheetCorey Ubaldo DO Work Phone: noms BCP OBStart: 02-21-2024 End: 22-80-9537Xtseztumj Result EncounterCorey Ubaldo DO Work Phone: noms External Department UnsolicitedStart: 02-21-2024 End: 13-26-7994Ropgngl encounter procedureCorey Ubaldo DO Work Phone: [facility] Work Phone: Start: 02-21-2024 End: 32-42-7163Boclaqzn preventive med est patient 18-39 yrsCorey Ubaldo DO Work Phone: n[facility] OBComment on above:Well woman exam with routine gynecological exam; Mood changesStart: 02-21-2024 End: 52-22-9828vyhgyagbtfNQJWC FAZIONot AvailableStart: 12-20-2023 End: 86-43-3183pnmvuhuzyiCYXNE FAZIONot AvailableStart: 10-30-2022 End: 59-59-8930Zqahjvwlnu and management of inpatientDR TUCKER UBALDO .Facility: Start: 10-28-2022 End: 17-65-8708opydxvdpuvLL TUCKER UBALDO .Facility:V0Vugyi: 10-25-2022 End: 00-15-6908nlnmumsqkpZO TUCKER UBALDO .Facility:A9Tfcly: 10-20-2022 End: 18-61-7623tuhkljkqaqXU BELKIS QUILES .Facility:W6Gdsfu: 10-17-2022 End: 32-22-7227msdmzsnqpjGW BELKIS QUILES .Facility:F8Ttlit: 10-14-2022 End: 74-06-7942sthbbixzzyMB BELKIS QUILES .Facility:Q3Jyiuo: 10-13-2022 End: 16-49-2075hyfzajboopMV TUCKER UBALDO .Facility:L4Drszt: 10-11-2022 End: 21-39-4984vkonkdzmueDY FRANKLIN HOY .Facility:Y5Fzoox: 10-11-2022 End: 74-94-2257jdeclevybgZY FRANKLIN HOY .Facility:E3Mwqdu: 10-07-2022 End: 42-87-5376qyxjbfheqlVS TUCKER UBALDO .Facility:B8Rgtkn: 09-30-2022 End: 10-32-6833nuvcaoxsfwFK TUCKER UBALDO .Facility:M3Sqqwo: 09-23-2022 End: 09-79-5160espkeehmlaID BELKIS QUILES .Facility:D0Cscxf: 09-16-2022 End: 64-29-6111yoxxrbfvdjDX FRANKLIN HOY .Facility:Z7Pvkxm: 09-15-2022 End: 78-62-0029xxoeigalyyYB TUCKER UBALDO .Facility:F4Yzomn: 09-13-2022 End: 74-28-2976llpycgmfouVQ TUCKER UBALDO .Facility:H6Gmptr: 08-18-2022 End: 71-30-2065ypvqjygonoII TUCKER UBALDO .Facility:Q8Muwxu: 07-08-2022 End: 91-83-3709gjbcrcdquuNW TUCKER UBALDO .Facility:A1Zlgpm: 06-22-2022 End: 55-85-5187fozuoevunlZF TUCKER UBALDO .Facility:L0Gjjnr: 06-03-2022 End: 83-19-9428iznghtqbzjBF TUCKER UBALDO .Facility:P3Yfgxf: 04-01-2022 End: 41-22-3677ebrahcyvroEV TUCKER UBALDO .Facility:C5Jzuys: 02-16-2018 End: 11-68-6984Sjqmcav encounterDEFAULT PHYSICIANFacility:[facility] Procedures DateProcedureProcedure DetailPerforming ClinicianStart: 65-61-3065EUC,APTIMA HPV,AGE GDLNCorey Ubaldo DO Work Phone: Start: 64-95-6930Rprsbmwz of Products of Conception, External ApproachDR BELKIS QUILES .Start: 50-32-2282Vrqetcok of Female Perineum, External ApproachDR BELKIS QUILES .Start: 95-34-8021Keqzleke of Amniotic Fluid, Therapeutic from Products of Conception, Via Natural or Artificial OpeningDR BELKIS QUILES .Start: 52-51-2237Tabeytkkqfqv of Other Hormone into Peripheral Vein, Percutaneous ApproachDR BELKIS QUILES . Plan of Treatment DateCare ActivityDetailAuthorStart: 02-21-2024 End: 70-82-7096Osjqail encounter zmwpnvybx34/18/2024 10:50 AM EDT Office Visit [facility] [address] [phone] Tucker Conner, DO [address] [place] [address] ArrivedNOUCSF MEDICAL [facility] OBComment on above:ArrivedCytology Cervical or vaginal smear or scraping studyPap Smear Pathology and Cytology Routine Well woman exam with routine gynecological exam Ordered: 02/21/2024[facility] Work Phone: comment on above:Ordered: 02/21/2024Human papilloma virus DNA [Presence] in Unspecified specimen by Probe with amplificationHPV DNA probe, amplified Microbiology Routine Well woman exam with routine gynecological exam Ordered: 02/21/2024[facility] HealthcareComment on above:Ordered: 02/21/2024 Payers DatePayer CategoryPayerPolicy [id number] Health InsuranceMEDICAL MUTUAL Member Subscriber Plan / Payer (Effective 2022-Present) Name: Ally Lopez Relation to Subscriber: Spouse Name: ISABEL LOPEZ Date of : 1985 Address: [address] [place] [id number] [place] [address] Payer ID: Not on file Type: Not on file Address: [facility] [address] [place] [id number] [id number] 2.0.1.638480.3.57[id number] 2.0.1.641574.3.57[id number] 2.840.1.244994.3.57[id number] 2.840.1.961718.3.579.[id number] 2.840.1.680430.3.579.[id number] 2.0.1.687792.3.579.[id number] 2.16840.1.371618.3.579.2.30115-46-9227Xtknwcd3623102 2.840.1.418467.3.579.[id number] 2.16840.1.375955.3.579.[id number] 2.840.1.882251.3.579.[id number] 2.16840.1.549511.3.579.2.71192-95-7420Ivcdigu2712458 2.16840.1.563515.3.579.2.98312-71-8173Bkvlmrw1091200 2.16.840.1.065941.3.579.2.65060-84-4730Bvwbisq2008260 2.16.840.1.463100.3.579.2.46160-61-4071Wqamcbx9655326 2.16.840.1.072716.3.579.2.75739-43-7007Wbnscvl7005652 2.16.840.1.427154.3.579.2.25721-80-9686Lbpvhxm1589139 2.16.840.1.494696.3.579.2.79699-91-0989Blloopr6517710 2.16.840.1.365092.3.579.2.03372-65-1178Mclilns4634163 2.16840.1.284009.3.579.2.26647-94-7458Vihhcok3436326 2.16.840.1.321023.3.579.2.19331-10-4736Ewrfugl6543036 2.16840.1.017088.3.579.2.317652-70-1142Jsxeggl2594952 2.16.840.1.301134.3.579.2.589202-34-5328Rrlagkq3829785 2.16840.1.467095.3.579.2.[id number] Social History DateTypeDetailFacilityStart: 29-13-1804Zsuejlx smoking status NHISNever smoked tobaccoNOMS HealthcareStart: 06-19-3359Oawvsko use and exposureSmokeless tobacco non-userNOMS HealthcareStart: 12-20-2023 End: 43-34-8063Snyrormjg beverage intakeLifetime non-drinker (finding)[facility]OMS HealthcareStart: 67-41-4066Xvkyzcw of Social functionNOMS HealthcareStart: 88-76-0600Tqmdhye use panelNOMS HealthcareStart: 84-56-3808Lcv assigned at FemaleSEVIER VALLEY HOSPITAL HealthcareStart: 95-33-2847Ncrghq identityIdentifies as female gender (finding)[facility] HealthcareStart: 42-24-3810Zllawq orientationHeterosexual (finding)[facility] HealthcareStart: 27-55-6419IhgFcyrlnBJOX Healthcare History of Present illness Narrative 08-27-2024 Note Date & ZaeqBnbmHyycujyg62-66-1673 History of Present illness Narrative* Sandycarol Ho MA - 08/27/2024 3:00 PM EDT Reason for Appointment: Patient ID: Ally Lopez is a 38 y.o. female who presents for Weight Management (Adipex #1 vist) Patient presents today for Weight Management Consult. MEDICATIONS Current Outpatient Medications Medication Instructions amoxicillin (AMOXIL) 500 mg, Oral, 2 times daily buPROPion XL (WELLBUTRIN XL) 150 mg, Oral, Daily, Do not crush, chew, or split. etonogestrel-ethinyl estradiol (Nuvaring) 0.12-0.015 MG/24HR vaginal ring 1 Ring, Vaginal, Every 28days, Insert vaginal ring for 3 weeks, then remove for 1 week. metFORMIN XR (Glucophage-XR) 500 MG 24 hr tablet TAKE 1 TABLET BY MOUTH IN THE EVENING WITH MEALS, DO NOT CRUSH, CHEW, OR SPLIT phentermine (ADIPEX-P) 37.5 mg, Oral, Daily before breakfast phentermine (ADIPEX-P) 37.5 mg, Oral, Daily before breakfast Kfqdpj-Czavwheut-Szhd-Fish Oil ( + COMPLETE MULTI PO) 1 tablet, Oral, Daily ALLERGIES No Known Allergies PROBLEMS Active Ambulatory Problems Diagnosis Date Noted Missed menses 11/13/2022 Diet controlled gestational diabetes mellitus (GDM) in second trimester 11/13/2022 Vaginal yeast infection 11/13/2022 Elevated glucose tolerance test 11/13/2022 Excessive growth affecting management of mother in third trimester, antepartum 11/13/2022 Nausea and vomiting 11/13/2022 with normal glucose tolerance test (GTT) 11/13/2022 screening encounter 11/13/2022 30 weeks gestation of 11/13/2022 Well woman exam with routine gynecological exam 02/21/2024 Mood changes 02/21/2024 Resolved Ambulatory Problems Diagnosis Date Noted No Resolved Ambulatory Problems Past Medical History: Diagnosis Date Miscarriage HISTORY PAST MEDICAL HISTORY SOCIAL HISTORY Past Medical History: Diagnosis Date Miscarriage Social History Tobacco Use Smoking status: Never Smokeless tobacco: Never Substance Use Topics Alcohol use: Never Drug use: Never FAMILY HISTORY No family history on file. SURGICAL HISTORY No past surgical history on file. REVIEW OF SYSTEMS Review of Systems: Review of Systems OBJECTIVE Objective: OBGyn Exam Vitals: Estimated body mass index is 30.13 kg/m as calculated from the following: Height as of 02/21/24: 5' 9 . Weight as of this encounter: 204 lb. BP: 118/78 No LMP recorded. ASSESSMENT & PLAN ICD-10-CM 1. Weight gain R63.5 2. Encounter for weight management Z76.89 phentermine (Adipex-P) 37.5 MG tablet Pt seen today for adipex #1 visit. Patient was given 90 day supply. Patient presents today for initial Adipex prescription. The importance of keeping a food journal, proper nutrition/diet, and exercise regimen while taking Adipex has been discussed. Patient verbalized understanding and signed consents to initiate (Adipex) medication therapy. Patient was given a printed prescription signed by provider to take to their local pharmacy. Follow Up: Patient is to return to the office in 1 month for further evaluation to assess patient progress. Weight and blood pressure will need to be captured in order for patient to receive 2nd prescription. Documented by Sandy Ho MA on behalf of: Tucker Conner DO documented in this encounterNOMS Healthcare History of Present illness Narrative 02-21-2024 Note Date & XniiSrfqWrvtream62-63-0632 History of Present illness Narrative* Nasrin Carter LPN - 02/21/2024 10:50 AM EDT Reason for Appointment: Patient ID: Ally Lopez is a 38 y.o. female who presents for Well Women Visit Patient presents today for Annual Exam. MEDICATIONS Current Outpatient Medications Medication Instructions desonide (DesOwen) 0.05 % cream Topical, 2 times daily etonogestrel-ethinyl estradiol (Nuvaring) 0.12-0.015 MG/24HR vaginal ring 1 Ring, Vaginal, Every 28days, Insert vaginal ring for 3 weeks, then remove for 1 week. metFORMIN XR (Glucophage-XR) 500 MG 24 hr tablet TAKE 1 TABLET BY MOUTH IN THE EVENING WITH MEALS, DO NOT CRUSH, CHEW, OR SPLIT phentermine (ADIPEX-P) 37.5 mg, Oral, Daily before breakfast Getxdy-Pvhejvint-Rytg-Fish Oil ( + COMPLETE MULTI PO) 1 tablet, Oral, Daily ALLERGIES No Known Allergies PROBLEMS Active Ambulatory Problems Diagnosis Date Noted Missed menses 11/13/2022 Diet controlled gestational diabetes mellitus (GDM) in second trimester 11/13/2022 Vaginal yeast infection 11/13/2022 Elevated glucose tolerance test 11/13/2022 Excessive growth affecting management of mother in third trimester, antepartum 11/13/2022 Nausea and vomiting 11/13/2022 with normal glucose tolerance test (GTT) 11/13/2022 screening encounter 11/13/2022 30 weeks gestation of 11/13/2022 Resolved Ambulatory Problems Diagnosis Date Noted No Resolved Ambulatory Problems Past Medical History: Diagnosis Date Miscarriage HISTORY PAST MEDICAL HISTORY SOCIAL HISTORY Past Medical History: Diagnosis Date Miscarriage Social History Tobacco Use Smoking status: Never Smokeless tobacco: Never Substance Use Topics Alcohol use: Never Drug use: Never FAMILY HISTORY No family history on file. SURGICAL HISTORY History reviewed. No pertinent surgical history. REVIEW OF SYSTEMS Review of Systems: Review of Systems All other systems reviewed and are negative. OBJECTIVE Objective: Physical Exam Constitutional: Appearance: Normal appearance. She is well-developed. Genitourinary: Vulva normal. Breasts: Breasts are soft. Right: Normal. Left: Normal. Cardiovascular: Rate and Rhythm: Normal rate and regular rhythm. Pulmonary: Effort: Pulmonary effort is normal. Breath sounds: Normal breath sounds. Abdominal: General: Bowel sounds are normal. There is no distension. Palpations: Abdomen is soft. Tenderness: There is no abdominal tenderness. There is no guarding or rebound. Musculoskeletal: General: No swelling. Normal range of motion. Right lower leg: No edema. Left lower leg: No edema. Neurological: Mental Status: She is alert and oriented to person, place, and time. Skin: General: Skin is warm and dry. Psychiatric: Mood and Affect: Mood normal. Behavior: Behavior normal. Vitals and nursing note reviewed. Exam conducted with a breakfast bar attendant present. Vitals: Estimated body mass index is 26.29 kg/m as calculated from the following: Height as of this encounter: 5' 9 . Weight as of this encounter: 178 lb. BP: No LMP recorded. ASSESSMENT & PLAN ICD-10-CM 1. Well woman exam with routine gynecological exam Z01.419 Pap Smear HPV DNA probe, amplified Annual Exam: Patient presents today for an annual exam. Patient states she is doing well and has no complaints of female issues. Pap was obtained without difficulty. Patient voiced that with all that has happened in the past few years she is having mood changes anddiscussed options with patient and patient will try oral medication for short-term to see if improvement. Orders Placed This Encounter Procedures HPV DNA probe, amplified Follow Up: Patient is to return in one year for annual unless needed otherwise. Documented by Nasrin Carter LPN on behalf of: Tucker Conner DO documented in this encounterNOFL Healthcare Evaluation note Note Date & TypeNoteFacilityEvaluation note* Diagnosis Well woman exam with routine gynecological exam Routine gynecological examination Mood changes Unspecified episodic mood disorder documented in this encounter [facility] Evaluation note Note Date & TypeNoteFacilityEvaluation note* Diagnosis Weight gain Other symptoms concerning nutrition, metabolism, and development Encounter for weight management documented in this encounter [facility] Evaluation note Note Date & TypeNoteFacilityEvaluation note* Diagnosis General counseling and advice on contraceptive management- Primary Other general counseling and advice for contraceptive management documented in this encounter [facility] Healthcare Summary Purpose Family History No Family History Records FoundNo Family History Records FoundNo Family History Records Found Advance Directives No Advanced Directives Records FoundNo Advanced Directives Records FoundNo Advanced Directives Records Found Additional Source Comments INFORMATION SOURCE (unrecogn ized section and content) DATE CREATED AUTHOR 03/15/2018 [facility] DATE CREATED AUTHOR AUTHOR'S ORGANIZ ATION 11/11/2022 [facility] DATE CREATED AUTHOR AUTHOR'S ORGANIZ ATION 08/28/2024 [facility] EPIC Care Teams (unrecognized sec tion and content) Team MemberRelationshipSpecialtyStart DateEnd Date Franklin Murguia MD [address] [place] [address] PCP - [facility]10/25/22Te MemberRelationshipSpecialtyStart End Franklin Murguia MD [address] [place] [address] PCP - [facility]10/25/22Te MemberRelationshipSpecialtyStart End Franklin Murguia MD [address] [place] [address] PCP - [facility]10/25/22Te MemberRelationshipSpecialtyStart End Franklin Murguia MD PCP - [facility]10/25/22 Reason for Visit (unrecogniz ed section and content) ReasonCommentsWell Women VisitReasonCommentsWeight ManagementAdipex #1 vist FOR RECORDS PERTAINING TO PATIENTS WHO ARE OR HAVE BEEN ENROLLED IN A CHEMICAL DEPENDENCY/SUBSTANCEABUSE PROGRAM, SOME INFORMATION MAY BE OMITTED. This clinical summary was aggregated from multiple sources. Caution should be exercised in using it in the provision of clinical care. This summary normalizes information from multiple sources, and as a consequence, information in this document may materially change the coding, format and clinical context of patient data. In addition, data may be omitted in some cases. CLINICAL DECISIONS SHOULD BE BASED ON THE PRIMARY CLINICAL RECORDS. [facility] [employer] [facility]. provides no warranty or guarantee of the accuracy or completeness of information in this document.
== END 2025-04-07 11:45 | disposition home or self-care (01) ==
LOC: MAMMO 11:44
PROVIDERS: Visit Provider Obstetrics & Gynecology
DX: Z12.31 Encounter for screening mammogram for malignant neoplasm of breast (principal); Z80.1 Family history of malignant neoplasm of trachea, bronchus and lung; Z80.42 Family history of malignant neoplasm of prostate; Z80.7 Family history of other malignant neoplasms of lymphoid, hematopoietic and related tissues
CPT/HCPCS: 77063; 77067